=== PATIENT | female | born 1985 | race Caucasian/White ===

== ENCOUNTER 2017-05-02 10:10 | Emergency (ER) | payer MEDICAID ==
[~2017-05-02] VITALS: Ht 152.4 cm; Wt 55.9 kg
[~2017-05-02 10:10] MED LIST: ACETAMINOPHEN W1 TA6 PO; ALEVE220 MG PO; AMOXICILLIN 50500 MG PO; ANTIBIOTIC; BACTRIM DS 8001 TA1 PO; CEPHALEXIN500 M1 PO; EXCEDRIN MIGRA1 EACH PO; FERROUS SULFATE27 MG PO; FIORICET 325 MG1 TA1 PO; HCTZ 25MG25 MG PO; IBU-TAB800 MG PO; IBU800 M1 PO; IBUPROFEN200 M1 PO; IMITREX100 MG PO; K-DUR 1010 MEQ PO; KETOROLAC TROME10 MG PO; LIDODERM 5% PATC1 EA TP; LIORESAL 1010 MG/TAB PO; MOTRIN800 MG PO; NEURONTIN100 MG PO; NO HOME MEDICATIONS; NORCO 325 MG-51 TA1 PO; NORCO 325 MG-51 TAB PO; PEN-VEE K250 MG PO; PEN-VEE K500 MG PO; PENICILLIN-VK500 MG PO; PERCOCET 325 MG1 TA2 PO; PERCOCET 325 MG1 TA4 PO; POTASSIUM CH2 MEQ/ML PO; PRENATAL1 TA6 PO; SKELAXIN400 MG PO; TESSALON PERLE200 MG PO; TYLENOL 325MG325 MG PO; ULTRAM 50MG TAB50 MG PO; ULTRAM50 M1 PO; ULTRAM50 MG PO; VIBRAMYCIN100 MG PO; ZITHROMAX Z PA250 MG PO; ZOFRAN ODT8 MG PO
[2017-05-02 11:40] VITALS: BP 131/86
== END 2017-05-02 11:40 | disposition home or self-care (01) ==
LOC: ED 10:10
DX: M25.512 Pain in left shoulder (principal); M25.511 Pain in right shoulder; R06.4 Hyperventilation; F41.9 Anxiety disorder, unspecified; F17.200 Nicotine dependence, unspecified, uncomplicated

== ENCOUNTER 2018-01-09 18:29 | Emergency (ER) | payer SELFPAY ==
[~2018-01-09] VITALS: Ht 157.5 cm; Wt 53.6 kg
[2018-01-09 21:26] VITALS: BP 147/54
== END 2018-01-09 21:26 | disposition home or self-care (01) ==
LOC: ED 18:29
DX: R51 Headache (principal); R11.2 Nausea with vomiting, unspecified; Z86.69 Personal history of other diseases of the nervous system and sense organs
CPT/HCPCS: J1885; J2360

== ENCOUNTER 2018-02-17 17:17 | Emergency (ER) | payer SELFPAY ==
[~2018-02-17] VITALS: Ht 154.9 cm; Wt 53.6 kg
[2018-02-17] MEDS ORDERED: KEFLEX250 M1 PO (17:45)
[2018-02-17 18:14] VITALS: BP 107/51
== END 2018-02-17 18:00 | disposition home or self-care (01) ==
LOC: ED 17:17
DX: L73.9 Follicular disorder, unspecified (principal); F17.210 Nicotine dependence, cigarettes, uncomplicated

== ENCOUNTER 2018-03-17 16:40 | Emergency (ER) | payer SELFPAY ==
[~2018-03-17] VITALS: Ht 154.9 cm; Wt 54.5 kg
[~2018-03-17 16:40] MED LIST changes: +KEFLEX250 M1 PO
[2018-03-17 17:32] VITALS: BP 110/80
== END 2018-03-17 17:29 | disposition home or self-care (01) ==
LOC: ED 16:40
DX: S67.192A Crushing injury of right middle finger, initial encounter (principal); W22.8XXA Striking against or struck by other objects, initial encounter; Y92.009 Unspecified place in unspecified non-institutional (private) residence as the place of occurrence of the external cause

== ENCOUNTER 2018-04-08 15:38 | Emergency (ER) | payer SELFPAY ==
[2018-04-08] MEDS ORDERED: TYLENOL 500MG500 MG PO (15:47)
[2018-04-08] MEDS ORDERED: PREDNISONE10 MG PO (16:21)
[2018-04-08 16:28] VITALS: BP 107/72
== END 2018-04-08 16:29 | disposition home or self-care (01) ==
LOC: ED 15:38
DX: L25.9 Unspecified contact dermatitis, unspecified cause (principal); R22.0 Localized swelling, mass and lump, head; F17.210 Nicotine dependence, cigarettes, uncomplicated
CPT/HCPCS: J7512

== ENCOUNTER 2018-05-12 23:22 | Emergency (ER) | payer SELFPAY ==
[~2018-05-12] VITALS: Ht 152.4 cm; Wt 60.5 kg
[~2018-05-12 23:22] MED LIST changes: +PREDNISONE10 MG PO; +TYLENOL 500MG500 MG PO
[2018-05-13] MEDS ORDERED: VALIUM2 M1 PO (00:15)
[2018-05-13] MEDS ORDERED: WAL-DRAM 225 MG PO (00:17)
[2018-05-13 00:34] VITALS: BP 110/64
== END 2018-05-13 00:34 | disposition home or self-care (01) ==
LOC: ED 23:22
DX: H65.93 Unspecified nonsuppurative otitis media, bilateral (principal); H81.392 Other peripheral vertigo, left ear; H93.12 Tinnitus, left ear; F17.200 Nicotine dependence, unspecified, uncomplicated

== ENCOUNTER → 2023-06-24 | Outpatient (CLI) | payer MEDICAID ==
[~2023-06-24] MED LIST changes: +VALIUM2 M1 PO; +WAL-DRAM 225 MG PO
== END ==
LOC: RAD 14:32
DX: M50.321 Other cervical disc degeneration at C4-C5 level (principal); M51.34 Other intervertebral disc degeneration, thoracic region

== ENCOUNTER → 2023-08-20 | Outpatient (CLI) | payer MEDICAID | LOC: RAD 12:18 | DX: R05.9 Cough, unspecified (principal) ==